=== PATIENT | male | born 1970 | race Caucasian/White ===

== ENCOUNTER 2024-10-18 19:32 | Emergency (ER) | payer SELFPAY ==
[2024-10-18 19:46] VITALS: BP 146/93; PULSE 83; RESP 15; TEMP 36.7; O2SAT 94; BMI 33.7
--- NOTE | 2024-10-18 19:51 | DI.RAD.S_ITS ---
PROCEDURE: XR WRIST RT MIN 3V INDICATIONS: injury yesterday twisting a bolt. swelling/pain TECHNIQUE: 4 views of the wrist were acquired. COMPARISON: None. FINDINGS: Bones: No fractures or dislocations. No suspicious bony lesions. Soft tissues: No suspicious soft tissue calcifications. IMPRESSION: No acute osseous abnormality. If pain persists with conservative management, consider repeat x-ray in 10-14 days or cross-sectional imaging. Dictated by: Antonio Thomas M.D. on 10/18/2024 at 20:29 Approved by: Antonio Thomas M.D. on 10/18/2024 at 20:30
--- NOTE | 2024-10-18 20:20 | PC.NURSE ---
Pt resting wrist on counter in position of comfort resting on pillow. Pt has good CMS and is able to move all fingers in right hand at this time, RA, NAD, breathing even/equal/unlabored at this time. Ice pack given to pt. Call light within reach, no other needs at this time
--- NOTE | 2024-10-18 20:56 | ED.UPPEXIN ---
HPI - Extremity Injury (Upper) General Chief Complaint: Extremity Injury, Upper Stated Complaint: right hand swollen Time Seen by Provider: 10/18/24 20:54 Source: patient Mode of arrival: Ambulatory History of Present Illness HPI narrative: 53-year-old male patient, otherwise healthy, who twisted his right wrist yesterday and has swelling and pain in the wrist and hand. No other injury. Related Data Allergies Allergy/AdvReac Type Severity Reaction Status Date / Time No Known Drug Allergies Allergy Verified 10/18/24 19:51 Review of Systems Review of Systems ROS Unobtainable: All systems reviewed & are unremarkable except as noted in HPI and below Musculoskeletal Musculoskeletal: Reports as per HPI Patient History Social History Smoking Status: Current every day smoker Smoking Status: Current every day smoker Exam Narrative Exam Narrative: General: Alert and conversant. No distress. Appears well nourished and well hydrated Lungs: No respiratory distress Musculoskeletal: Right wrist and hand have soft tissue tenderness and slight swelling with minimal bony tenderness and no deformity. Neuro: Alert and oriented. Cranial nerves, motor, sensory and cerebellar all grossly intact. No focal deficit Skin: Warm and normal color. No rashes Psychological: Normal affect and interaction. No evidence of delusion or psychosis. Normal mood. Initial Vital Signs Initial Vital Signs: Vital Signs Temperature 98.0 F 10/18/24 19:46 Pulse Rate 83 10/18/24 19:46 Respiratory Rate 15 10/18/24 19:46 Blood Pressure 146/93 H 10/18/24 19:46 Pulse Oximetry 94 10/18/24 19:46 Oxygen Delivery Method Room Air 10/18/24 19:46 Course Orders Ordered: ED Orders 10/18/24 19:51 XR wrist RT min 3V Stat Vital Signs Vital signs: Vital Signs - 8 hr 10/18/24 19:46 10/18/24 21:07 10/18/24 21:11 Temperature 98.0 F Pulse Rate 83 88 Respiratory Rate 15 16 18 Blood Pressure 146/93 H 119/62 Pulse Oximetry 94 97 Oxygen Delivery Method Room Air MDM - Extremity Injury (Upper) Differential Diagnosis Differential diagnosis: Likely sprain and strain of wrist, fracture of wrist and fracture of hand Imaging Data Right wrist x-ray: Attestation: I personally reviewed and interpreted this imaging study as follows: (No fracture or malalignment evident) [facility] Narrative Medical decision making narrative: Right wrist injury with x-rays negative. This appears to be a right wrist sprain and was treated with Reagan wrap, ice and ibuprofen. Follow up if not improving in 5 or 6 days Discharge Plan Departure Patient Disposition: Home Clinical Impression: Sprain and strain of wrist Instructions: DI for Wrist Sprain Activity Restrictions/Additional Instructions: Plan: Removable splint, ice and elevation. Ibuprofen. Follow up with your doctor if not improving in 5 days Stand Alone Forms: Patient Portal/API, Work Release Note
[2024-10-18 21:07] VITALS: BP 119/62; PULSE 88; RESP 16; O2SAT 97
[2024-10-18 21:11] VITALS: RESP 18
== END 2024-10-18 21:13 | disposition home or self-care (01) ==
PROVIDERS: Emergency Provider Emergency Medicine
DX: S63.501A Unspecified sprain of right wrist, initial encounter (principal); X50.1XXA Overexertion from prolonged static or awkward postures, initial encounter
CPT/HCPCS: 73110; 99281; 99283